=== PATIENT | female | born 1995 | race Caucasian/White ===

== ENCOUNTER 2022-03-10 19:53 | Emergency (ER) | payer SELFPAY ==
[2022-03-10 19:59] VITALS: BP 145/87; PULSE 86; RESP 16; TEMP 36.7; O2SAT 98; BMI 22.2
--- NOTE | 2022-03-10 20:48 | ED_ITS ---
HPI - Animal Bite General: Chief Complaint: Animal Bite Stated Complaint: Dog Bite Time Seen by Provider: 03/10/22 20:12 History of Present Illness: Patient comes in with a laceration to the right side of her upper and lower lip. States she was sitting on the floor when a dog bit her. Associated symptoms: Deny fever(s) or headache(s) Review of Systems Const: Denies: fever(s) or body aches Eyes: Denies: change in vision or blurry vision ENMT: Denies: throat pain or odynophagia Card: Denies: chest pain or palpitations Resp: Denies: dyspnea or productive cough GI: Denies: abdominal pain, nausea or vomiting : Denies: flank pain or dysuria Musc: Denies: neck pain or back pain Skin/Breast: Denies: rash or pruritus Neuro: Denies: headache(s) or numbness in extremities Psych: Denies: anxiety or change in appetite Endo: Denies: polyuria or excessive sweating [facility] Female Reproductive History: Date of last menstrual period: 03/10/22 Physical Exam Const: COMMON NORMALS: no acute distress, patient oriented x3, healthy appearing and alert HENMT: COMMON NORMALS: normocephalic and atraumatic HEAD & SCALP: normocephalic and atraumatic Eye: COMMON NORMALS: Equal, round and reactive pupils present and EOMs intact bilaterally PUPIL: Yes Equal, round and reactive pupils present Neck/C-Spine: COMMON NORMALS: full ROM and supple Resp: COMMON NORMALS: normal respiratory effort, No retractions and No use of accessory muscles Cardio: COMMON NORMALS: regular rate and regular rhythm RATE: regular rate RHYTHM: regular rhythm GI: COMMON NORMALS: Normal to inspection, nondistended, normoactive bowel sounds present, Soft to palpation and non-tender PALPATION: Yes Soft to palpation Back/Pelvis: COMMON NORMALS: thoracic and lumbar spine normal to inspection and no thoracic nor lumbar tenderness Extremity: COMMON NORMALS: normal to inspection and full ROM Neuro: COMMON NORMALS: patient oriented x3 SENSORIUM/ORIENTATION: Yes alert Psych: COMMON NORMALS: mental status grossly normal and cooperative Skin: OTHER: complex laceration that crosses the vermilion border of her upper lip on the right side as well as on the lower lip on the right side which also crosses the vermilion border multiple times. Course Vital Signs: Vital signs: Vital Signs Temperature 98.1 F 03/10/22 20:58 Pulse Rate 84 03/10/22 20:58 Respiratory Rate 16 03/10/22 20:58 Blood Pressure 147/79 03/10/22 20:58 Pulse Oximetry 98 03/10/22 20:58 Oxygen Delivery Me croft 03/10/22 19:59 MDM - Animal Bite Medical Decision Making Patient comes in with a laceration to the right side of her upper and lower lip. States she was sitting on the floor when a dog bit her. On physical exam she has a complex laceration that crosses the vermilion border of her upper lip on the right side as well as on the lower lip on the right side which also crosses the vermilion border multiple times. After looking through our supply cabinet and calling up to surgery I am unable to find a suture small enough that would allow me to repair the multiple vermilion border violations appropriately. I talked to the patient about this and she does not want me to use a larger or inappropriate suture. She states that she would like me to discharge her and they will drive up to [place] to the bigger hospital up there.. Will discharge at this time. Discharge Plan Discharge Patient Disposition: Home Clinical Impression: Dog bite, Complicated laceration of lip Condition: Stable Discharge Orders: Discharge ED (Routine); Ordered 03/10/22 Ordered By: Antelmo Curry Coding Level of Care Code ED Quality Assurance for Shaheen Tripathi Exam Comprehensive
[2022-03-10 20:58] VITALS: BP 147/79; PULSE 84; RESP 16; TEMP 36.7; O2SAT 98
== END 2022-03-10 21:00 | disposition home or self-care (01) ==
PROVIDERS: Emergency Provider Emergency Medicine
DX: S01.511A Laceration without foreign body of lip, initial encounter (principal); W54.0XXA Bitten by dog, initial encounter
CPT/HCPCS: 99282